=== PATIENT | female | born 1985 | race Caucasian/White ===

== ENCOUNTER 2022-07-19 10:19 | Emergency (ER) | payer MEDICAID, SELFPAY ==
[2022-07-19] VITALS (7 sets, daily range): BP systolic 121; BP diastolic 72; PULSE 103–114; RESP 20–26; TEMP 36.5; O2SAT 91–98; BMI 42.9
--- NOTE | 2022-07-19 10:29 | EKG12_ITS ---
Test Reason : SOB Blood Pressure : / mmHG Vent. Rate : 105 BPM Atrial Rate : 105 BPM P-R Int : 138 ms QRS Dur : 080 ms QT Int : 352 ms P-R-T Axes : 069 068 057 degrees QTc Int : 465 ms Sinus tachycardia Otherwise normal ECG Confirmed by BISHOP ODELL, KATHY ([id number]), newspaper copy editor DENIA WONG ([id number]) on 07/20/2022 1:13:27 PM Referred By: CHALINO Confirmed By:EWELINA ALAS MD
--- NOTE | 2022-07-19 10:31 | ED.VIS.DYS ---
HPI History of Present Illness Chief Complaint: Shortness of Breath Informant: patient Narrative Narrative: Patient over from urgent care. Asthma history tobacco history started having symptoms 5 days ago slight cough wheezing at home. Symptoms worse today. Denies fevers. Denies production cough. Went to urgent care due to increased work of breathing was sent directly here. No testing. With her asthma she states she has been intubated in the past. She is nondiabetic. Prior similar symptoms: Yes PFSH PFSH Medical History (Updated 07/19/22 @ 12:[address] Teofilo Brown DO) Asthma HTN (hypertension) Home Medications albuterol sulfate 90 mcg/actuation aerosol inhaler (Ventolin HFA) 1 - 2 puff inhalation Q4H PRN PRN Wheezing ##1 07/19/22 [Rx Last Taken Unknown] albuterol sulfate 90 mcg/actuation aerosol inhaler (Ventolin HFA) 1 inh inhalation Q6H PRN Shortness Of Breath 07/19/22 [History Last Taken Unknown] fluticasone propionate 110 mcg/actuation HFA aerosol inhaler (Flovent HFA) 1 inh inhalation DAILY shortness of breath 07/19/22 [History Last Taken 07/19/22] ipratropium 0.5 mg-albuterol 3 mg (2.5 mg base)/3 mL nebulization soln 3 ml inhalation Q4H PRN Shortness Of Breath 07/19/22 [History Last Taken 07/19/22] metoprolol succinate 25 mg tablet,extended release 24 hr 25 mg PO DAILY blood pressure 07/19/22 [History Last Taken 07/19/22] prednisone 20 mg tablet 60 mg PO DAILY #12 tabs 07/19/22 [Rx Last Taken Unknown] sumatriptan succinate 50 mg tablet 50 mg PO Q2H PRN migraines 07/19/22 [History Last Taken Unknown] Allergy/AdvReac Type Severity Reaction Status Date / Time No Known Allergies Allergy Verified 07/19/22 10:22 Social History Smoking Status: Current some day smoker tobacco type: cigarettes ROS ROS ED Constitutional Constitutional ED: Denies chills, fever(s) or sweats Eyes Eyes: Denies change in vision ENT ENT ED: Denies dysphagia or sore throat Cardiovascular Cardiovascular: Denies chest pain, leg edema, palpitations or racing heartbeat Respiratory/Chest Respiratory/Chest: Reports cough and dyspnea; Denies dyspnea on exertion Gastrointestinal Gastrointestinal: Denies abdominal pain, diarrhea, nausea or vomiting Genitourinary Genitourinary ED: Denies dysuria, hematuria or urinary frequency Musculoskeletal Musculoskeletal: Denies back pain, extremity pain or neck pain Integumentary Denies rash or wounds Neurologic Neurologic: Denies headache(s), paresthesias or weakness EXAM Physical Exam Const Vital Signs: 07/19/22 10:20 07/19/22 10:38 07/19/22 10:41 Temperature 97.7 F L Temperature Source Temporal Pulse Rate 114 H 103 H Respiratory Rate 26 H 22 H Respiratory Effort Short of Breath Labored Respiratory Depth Normal Respiratory Pattern Tachypnea Blood Pressure Pulse Ox 91 Oxygen Delivery Method Room Air Nasal Cannula Oxygen Flow Rate (L/min) 3 07/19/22 11:59 07/19/22 12:00 07/19/22 12:53 Temperature Temperature Source Pulse Rate 110 H Respiratory Rate 20 H Respiratory Effort Respiratory Depth Respiratory Pattern Blood Pressure 121/72 H Pulse Ox 93 93 98 Oxygen Delivery Method Room Air Room Air Oxygen Flow Rate (L/min) Positive well nourished and well developed Constitutional Narrative: Speaking in short sentences accessory muscle use General Appearance ED: well developed HEENT Reports moist mucous membranes normocephalic and atraumatic Eyes PERRL, EOMs intact bilaterally and conjunctivae normal General Eye ED: Yes normal appearance of both eyes Neck no lymphadenopathy and supple General: Negative for tenderness Chest Wall Chest: Negative for tenderness Resp Resp Narrative: Inspiratory and expiratory wheezing bilaterally Effort and Inspection: respiratory distress Cardio regular rhythm and no murmurs Rate: tachycardic Peripheral Pulses: pulses 2+ throughout GI normal to inspection, nondistended, normoactive bowel sounds and non-tender Palpation: Negative for guarding or rebound tenderness present Back/Spine no CVA tenderness and no thoracic nor lumbar tenderness Extremity normal to inspection General Extremety ED: Negative for edema or tenderness General Extremity: Negative for edema Neuro oriented x3 and no sensory deficits noted Sensorium / Orientation: awake and alert Skin no rashes or lesions noted and no wounds MDM MDM MDM Narrative Medical decision making narrative: Patient increased work of breathing accessory muscle use with wheezing. EKG sinus rhythm. She had stacked treatment of aerosols steroids were started. Laboratory studies White count 16. Tube chest x-ray interpreted myself and read by radiology shows possible bibasilar infiltrates per radiology. She denies productive sputum. Reports she has been recent on steroids but is a week ago. I considered hospitalization however clinically improved talking full sentences very minimal wheezing on reevaluation. She was ambulated on room air maintained 94%. Therefore will be discharged on steroids update on inhaler with return precautions. Tobacco cessation discussed. All questions were answered. Lab Data Attestation: I reviewed the patient's lab results. Labs: Laboratory Results - last 24 hr 07/19/22 07/19/22 10:50 10:50 WBC 16.1 H RBC 4.81 Hgb 14.1 Hct 41.9 MCV 87.1 MCH 29.3 MCHC 33.7 RDW Std Deviation 40.9 RDW Coeff of Jorge Alberto 13.0 Plt Count 246 MPV 10.9 Immature Gran % (Auto) 0.500 Neut % (Auto) 70.2 H Lymph % (Auto) 13.6 L Arch[place] % (Auto) 7.9 Eos % (Auto) 7.2 H Baso % (Auto) 0.6 Absolute Neuts (auto) 11.3 H Absolute Lymphs (auto) 2.19 Nucleated RBC % 0 Sodium 138 Potassium 3.8 Chloride 109 H Carbon Dioxide 25.0 Anion Gap 4 L BUN 12 Creatinine 0.74 Estim Creat Clear Calc 91.63 Est GFR (MDRD) Af Amer 116 Est GFR (MDRD) Non-Af 95 BUN/Creatinine Ratio 16.3 Glucose 78 Calcium 9.2 Radiography Diagnostic Testing: Clinical Impression(s) from Imaging Studies Chest X-Ray 07/19/22 11:34 IMPRESSION: Increased markings at the lung bases suggestive of possible bibasilar infiltrates more prominent on the left side. Electronically Signed: Bogdan Rojo MD at 12:10 EST , EKG Initial EKG: Attestation: I personally reviewed and interpreted this EKG as follows: Comments: Sinus rate of [address] or T wave changes. Discharge Plan Triage Chief Complaint: Shortness of Breath ED Provider: Teofilo Brown Dx/Rx/DC Orders Clinical Impression: Asthma exacerbation, Tobacco dependence Instructions: Asthma Action Plan, ED Asthma, Acute (Adult), Smoking and Respiratory Diseases Prescriptions: New prednisone 20 mg tablet 60 mg PO DAILY Qty: 12 0RF albuterol sulfate [Ventolin HFA] 90 mcg/actuation HFA aerosol inhaler 1 - 2 puff inhalation Q4H PRN PRN (Reason: Wheezing) Qty: 1 0RF No Action ipratropium-albuterol [DuoNeb] 0.5 mg-3 mg(2.5 mg base)/3 mL Solution For Nebulization 3 ml INHALATION Q4H PRN (Reason: Shortness Of Breath) sumatriptan succinate 50 mg Tablet 50 mg PO Q2H PRN (Reason: migraines) Rx Instructions: do not exceed 4 doses per 24 hrs metoprolol succinate 25 mg tablet extended release 24 hr 25 mg PO DAILY albuterol sulfate [Ventolin HFA] 90 mcg/actuation Hfa Aerosol Inhaler 1 inh INHALATION Q6H PRN (Reason: Shortness Of Breath) fluticasone propionate [Flovent HFA] 110 mcg/actuation HFA aerosol inhaler 1 inh INHALATION DAILY Primary Care Provider: Care Physician,No Primary Referrals: Isabella Calloway [Non-Staff] - 1 Week Care Physician,No Primary [Primary Care Provider] - Activity Restrictions/Additional Instructions: Take steroids as prescribed. Inhaler as needed. You need to stop smoking. Follow-up as an outpatient, return if any worsening symptoms. Disposition Disposition: Home, Self Care Discharge Date/Time: 07/19/22 12:54
[2022-07-19] MEDS: Ipratropium/Albuterol Sulfate 3 ML AMPUL.NEB INHALATION (10:41)
[2022-07-19] MEDS: Albuterol 2.5 MG/3 ML VIAL.NEB. INHALATION ×3 (10:51)
--- NOTE | 2022-07-19 10:54 | NURSING ---
NO OLD EKGS
[2022-07-19 11:01] LABS: Absolute Lymphocyte Count 2.19 X10^3/uL (0.83-4.51); Absolute Neutrophil Count 11.3 X10^3/uL (2.0-7.7); Basophil# 0.09 X10^3/uL; Basophil% 0.6 % (0-1); Eosinophil# 1.16 X10^3/uL; Eosinophils% 7.2 % (0-5); Hematocrit 41.9 % (37-47); Hemoglobin 14.1 g/dL (12.0-15.0); Lymphocyte # 2.19 X10^3/ul (0.83-4.51); Lymphocyte % 13.6 % (19-41); Mean Corp Hgb Conc 33.7 g/dL (32-36); Mean Corpuscular Hgb 29.3 pg (27.0-32.0); Mean Corpuscular Volume 87.1 fL (81-99); Mean Platelet Vol. 10.9 fl (6.2-12.0); Monocyte# 1.28 X10^3/uL; Monocyte% 7.9 % (0-10); NRBC Flagged by Analyzer 0 % (0-5); Neutrophil # 11.33 X10^3/uL (2.7-7.7); Neutrophil % 70.2 % (47-70); Platelet Count 246 K/mm3 (150-450); RBC Distribution Width SD 40.9 fl (35.1-43.9); Red Blood Count 4.81 M/mm3 (4.2-5.4); White Blood Count 16.1 K/mm3 (4.4-11.0)
[2022-07-19] MEDS: MethylPREDNISolone 125 MG/2 ML Vial IV (11:01)
[2022-07-19 11:08] LABS: Anion Gap 4 (5-15); BUN 12 mg/dL (7-18); BUN/Creat Ratio 16.3 RATIO (10-20); Calcium,Total 9.2 mg/dL (8.5-10.1); Chloride 109 mmol/L (98-107); Creatinine, Serum 0.74 mg/dL (0.55-1.02); EST Glomerular Filtration Rate 95 mL/min (>60); Est Glom Filt Rate - Afr Amer 116 mL/min (>60); Estimated Creatinine Clearance 91.63 ml/min; Glucose 78 mg/dL (74-106); Potassium 3.8 mmol/L (3.5-5.1); Sodium Level 138 mmol/L (136-145)
--- NOTE | 2022-07-19 11:34 | RAD_ITS ---
STUDY: X-RAY CHEST REASON FOR EXAM: Female, 37 years old. 3 day history of cough. TECHNIQUE: Single AP portable view of the chest. COMPARISON: None. FINDINGS: EKG electrodes are seen. Mild increased markings at the lung bases worse at the left lung base suggestive of a possible bibasilar early infiltrates. There is no demonstrated pleural abnormality. Normal size heart. Normal mediastinum and aarti. Normal visualized pulmonary arteries. Normal visualized aortic arch and descending thoracic aorta. Normal visualized thoracic spine. Normal visualized ribs, clavicles, and shoulders. There is no demonstrated abnormality of the visualized soft tissue structures of the upper abdomen. RAD/Chest 1 View (Portable) IMPRESSION: Increased markings at the lung bases suggestive of possible bibasilar infiltrates more prominent on the left side. Electronically Signed: Bogdan Rojo MD at 12:10 EST ,
== END 2022-07-19 12:54 | disposition home or self-care (01) ==
PROVIDERS: Emergency Provider Emergency Medicine; Visit Provider Emergency Medicine
DX: J45.901 Unspecified asthma with (acute) exacerbation (principal); I10 Essential (primary) hypertension; F17.210 Nicotine dependence, cigarettes, uncomplicated; Z79.899 Other long term (current) drug therapy
CPT/HCPCS: 71045; 80048; 85025; 87428; 93005; 94640; 96374; 99283; A4216